=== PATIENT | female | born 1990 | race Caucasian/White ===

== ENCOUNTER → 2023-09-24 10:44 | Outpatient (REF) | payer BC, SELFPAY | LOC: PNTC 10:44 | PROVIDERS: ATTENDING PHYSICIAN Obstetrics & Gynecology | DX: Z34.82 Encounter for supervision of other normal pregnancy, second trimester (principal) | CPT/HCPCS: 76805 ==

== ENCOUNTER 2023-12-05 15:48 | Observation (INO) | payer BC, SELFPAY ==
[2023-12-05 16:05] VITALS: BMI 23.4
[2023-12-05 16:07] VITALS: BP 128/72
== END 2023-12-05 16:57 | disposition home or self-care (01) ==
LOC: LDRP 15:48
PROVIDERS: ADMITTING PHYSICIAN Obstetrics & Gynecology; FAMILY PHYSICIAN Internal Medicine
DX: O47.03 False labor before 37 completed weeks of gestation, third trimester (principal); O09.293 Supervision of pregnancy with other poor reproductive or obstetric history, third trimester; Z3A.30 30 weeks gestation of pregnancy
CPT/HCPCS: 59899; G0378

== ENCOUNTER 2024-02-12 19:24 | Inpatient (IN) | payer BC, SELFPAY ==
[2024-02-12 19:44] VITALS: BP 130/84; BMI 27.5
[2024-02-12 20:54] LABS: % Basophils 0.4 % (0-2); % Eosinophils 0.2 % (0-6); % Immature Granulocytes 0.5 % (0-0.5); % Monocytes 7.9 % (1.7-9.3); Absolute Basophils 0.1 10^3/uL (0-0.2); Absolute Immature Granulocytes 0.1 10^3/uL (0-0.05); Absolute Lymphocytes 3.4 10^3/uL (1.2-3.4); Absolute Neutrophils 7.7 10^3/uL (1.4-6.5); Hematocrit 36.3 % (37.0-47.0); Hemoglobin 13.6 g/dL (12.0-16.0); Mean Corp Hgb Conc. 37.5 g/dL (33.0-37.0); Mean Corpuscular Hgb 33.7 pg (27.0-31.0); Mean Corpuscular Volume 89.9 fL (81.0-99.0); Mean Platelet Volume 12.8 fL (7.4-10.4); Nucleated Red Blood Cells % 0 %; Platelet Count 179 10^3/uL (130-400); Red Blood Cell Count 4.04 10^6/uL (4.20-5.40); Red Cell Dist. Width 12.1 % (11.5-14.5); White Blood Cell Count 12.2 10^3/uL (4.8-10.8)
[2024-02-12] MEDS: CYTOTEC 25 MICROGRAM VAG (21:18)
[2024-02-13] MEDS: CYTOTEC 50 MICROGRAM PO (01:36)
[2024-02-13] MEDS: LR 1000 IV ×3 (02:00→07:15)
[2024-02-13] MEDS: FENTANYL/BUPIVACAINE 100 EPIDURAL ×2 (03:07→19:01)
[2024-02-13] MEDS: SUBLIMAZE 100 MCG EPIDURAL ×2 (03:07→08:26)
[2024-02-13] MEDS: PITOCIN 30 UNITS/NSS 500 ML IV (13:05)
[2024-02-13] MEDS: ZOFRAN 4 MG IV (13:36)
[2024-02-13 22:27] LABS: Cord ABG Comment CORD BLOOD
[2024-02-13 22:29] LABS: HCO3 Cord ABG 17.5 mmol/L; O2 Saturation % Cord ABG 48.2 %; PCO2 Cord ABG 39 mmHg; PO2 Cord ABG 22 mmHg; pH Cord ABG 7.26
[2024-02-13] MEDS: METHERGINE INJECTION 0.2 MG IM (22:29)
[2024-02-14] MEDS: MOTRIN 600 MG PO ×4 (01:05→20:37)
[2024-02-14 06:36] LABS: Hematocrit 29.3 % (37.0-47.0); Hemoglobin 10.9 g/dL (12.0-16.0)
[2024-02-14] MEDS: SENOKOT-S 1 TABLET PO ×2 (09:17→20:37)
[2024-02-14 14:47] LABS: Syphilis/T. pallidum Ab Reflex Negative (Negative)
[2024-02-14] MEDS: DILAUDID 2 MG PO (18:44)
[2024-02-15] MEDS: DILAUDID 2 MG PO (00:19)
[2024-02-15] MEDS: MOTRIN 600 MG PO ×2 (06:33→14:22)
[2024-02-15] MEDS: SENOKOT-S 1 TABLET PO (08:26)
== END 2024-02-15 19:45 | disposition home or self-care (01) | DRG 768 ==
LOC: LDRP 19:24
PROVIDERS: Obstetrics & Gynecology; ADMITTING PHYSICIAN Obstetrics & Gynecology
PROC: 3E0P7VZ Introduction of Hormone into Female Reproductive, Via Natural or Artificial Opening (ICD-10-PCS; 2024-02-12)
PROC: 0UQMXZZ Repair Vulva, External Approach (ICD-10-PCS; 2024-02-13)
PROC: 10E0XZZ Delivery of Products of Conception, External Approach (ICD-10-PCS; 2024-02-13)
PROC: 3E0DXGC Introduction of Other Therapeutic Substance into Mouth and Pharynx, External Approach (ICD-10-PCS; 2024-02-13)
PROC: 10H07YZ Insertion of Other Device into Products of Conception, Via Natural or Artificial Opening (ICD-10-PCS; 2024-02-13)
PROC: 6A550ZT Pheresis of Cord Blood Stem Cells, Single (ICD-10-PCS; 2024-02-13)
PROC: 0DQR0ZZ Repair Anal Sphincter, Open Approach (ICD-10-PCS; 2024-02-13)
DX: O48.0 Post-term pregnancy (principal); Z37.0 Single live birth; O70.20 Third degree perineal laceration during delivery, unspecified; Z3A.40 40 weeks gestation of pregnancy; O66.0 Obstructed labor due to shoulder dystocia; O77.0 Labor and delivery complicated by meconium in amniotic fluid; Z88.6 Allergy status to analgesic agent; Z91.018 Allergy to other foods
CPT/HCPCS: 88307; 36415; 82803; 85014; 85018; 85025; 86780; 86850; 86900; 86901

== ENCOUNTER → 2024-03-13 16:18 | Outpatient (REF) | payer BC, SELFPAY | LOC: RAD 16:18 | PROVIDERS: ATTENDING PHYSICIAN Obstetrics & Gynecology; FAMILY PHYSICIAN Internal Medicine | DX: M53.3 Sacrococcygeal disorders, not elsewhere classified (principal) | CPT/HCPCS: 72190 ==

== ENCOUNTER → 2024-06-01 06:44 | Outpatient (REF) | payer BC, SELFPAY ==
[2024-06-01 07:43] LABS: Hematocrit 41.4 % (37.0-47.0); Hemoglobin 13.8 g/dL (12.0-16.0); Mean Corp Hgb Conc. 33.3 g/dL (33.0-37.0); Mean Corpuscular Hgb 30.1 pg (27.0-31.0); Mean Corpuscular Volume 90.2 fL (81.0-99.0); Mean Platelet Volume 10.3 fL (7.4-10.4); Platelet Count 209 10^3/uL (130-400); Red Blood Cell Count 4.59 10^6/uL (4.20-5.40); Red Cell Dist. Width 12.1 % (11.5-14.5); White Blood Cell Count 6.1 10^3/uL (4.8-10.8)
[2024-06-01 08:16] LABS: ALT (SGPT) 48 U/L (0-35); AST (SGOT) 35 U/L (14-36); Albumin 4.8 g/dl (3.5-5.0); Alkaline Phosphatase 75 U/L (38-126); Blood Urea Nitrogen 19 mg/dl (7-17); Calcium 9.9 mg/dl (8.4-10.2); Carbon Dioxide 26 mmol/L (22-30); Chloride 105 mmol/L (98-107); Glucose 84 mg/dl (70-99); HDL Cholesterol 57 mg/dl; LDL Cholesterol, Calculated 176 mg/dl; Potassium 4.4 mmol/L (3.5-5.1); Sodium 144 mmol/L (135-145); Total Bilirubin 0.6 mg/dl (0.2-1.3); Total Cholesterol 248 mg/dl (50-199); Total Protein 7.5 g/dl (6.3-8.2); Triglyceride 79 mg/dl (10-149); Very Low Density Lipoprotein 15 mg/dl (0-30); eGFR > 60.00
[2024-06-01 08:50] LABS: Absolute Neutrophils -Man Diff 1.9 10^3/uL (1.4-6.5); Atypical Lymphocytes 10 %; Band Neutrophils 0 % (0-3); Lymphocytes 55 % (20-51); Monocytes 2 % (2-9); Segmented Neutrophils 32 % (42-75)
[2024-06-01 08:51] LABS: Normal RBC Morphology Yes; Platelets Checked Yes; TSH Reflex To Free T4 1.04 uIU/ml (0.47-4.68); Total Cells Counted 100
== END ==
LOC: REG 06:44
PROVIDERS: ATTENDING PHYSICIAN Physician Assistant
DX: E78.00 Pure hypercholesterolemia, unspecified (principal); R79.89 Other specified abnormal findings of blood chemistry; Z13.0 Encounter for screening for diseases of the blood and blood-forming organs and certain disorders involving the immune mechanism; Z13.29 Encounter for screening for other suspected endocrine disorder
CPT/HCPCS: 36415; 80053; 80061; 84443; 85025

== ENCOUNTER 2024-06-02 06:14 | Outpatient (RCR) | payer BC, SELFPAY | END 2024-06-02 23:59 | disposition home or self-care (01) | LOC: RPT 06:14 | PROVIDERS: ATTENDING PHYSICIAN Obstetrics & Gynecology; FAMILY PHYSICIAN Internal Medicine | DX: R10.2 Pelvic and perineal pain (principal); M62.89 Other specified disorders of muscle; M62.838 Other muscle spasm; M54.59 Other low back pain; M62.81 Muscle weakness (generalized) | CPT/HCPCS: 97140; 97163; 97530 ==

== ENCOUNTER → 2024-06-22 08:01 | Outpatient (REF) | payer BC, SELFPAY | LOC: HWRAD 08:01 | PROVIDERS: ATTENDING PHYSICIAN Physician Assistant | DX: R79.89 Other specified abnormal findings of blood chemistry (principal) | CPT/HCPCS: 76700 ==

== ENCOUNTER → 2024-06-29 08:38 | Outpatient (REF) | payer BC, SELFPAY | LOC: MRI 3T 08:38 | PROVIDERS: ATTENDING PHYSICIAN Physician Assistant; FAMILY PHYSICIAN Internal Medicine | DX: K76.9 Liver disease, unspecified (principal); R93.89 Abnormal findings on diagnostic imaging of other specified body structures | CPT/HCPCS: 74183; A9575 ==

== ENCOUNTER 2024-07-03 06:35 | Outpatient (RCR) | payer BC, SELFPAY | END 2024-07-03 23:59 | disposition home or self-care (01) | LOC: RPT 06:35 | PROVIDERS: ATTENDING PHYSICIAN Obstetrics & Gynecology; FAMILY PHYSICIAN Internal Medicine | DX: R10.2 Pelvic and perineal pain (principal); M62.89 Other specified disorders of muscle; M62.838 Other muscle spasm; Z73.6 Limitation of activities due to disability; M54.59 Other low back pain; M62.81 Muscle weakness (generalized); K59.00 Constipation, unspecified | CPT/HCPCS: 97140; 97530 ==

== ENCOUNTER 2024-07-24 06:10 | Outpatient (RCR) | payer BC, SELFPAY | END 2024-07-24 23:59 | disposition home or self-care (01) | LOC: RPT 06:10 | PROVIDERS: ATTENDING PHYSICIAN Obstetrics & Gynecology; FAMILY PHYSICIAN Internal Medicine | DX: R10.2 Pelvic and perineal pain (principal); M62.89 Other specified disorders of muscle; Z73.6 Limitation of activities due to disability; M62.838 Other muscle spasm; M54.59 Other low back pain; M62.81 Muscle weakness (generalized); K59.00 Constipation, unspecified | CPT/HCPCS: 97140; 97530 ==

== ENCOUNTER 2024-09-04 07:03 | Outpatient (RCR) | payer BC, SELFPAY | END 2024-09-04 23:59 | disposition home or self-care (01) | LOC: RPT 07:03 | PROVIDERS: ATTENDING PHYSICIAN Obstetrics & Gynecology; FAMILY PHYSICIAN Internal Medicine | DX: R10.2 Pelvic and perineal pain (principal); M62.89 Other specified disorders of muscle; Z73.6 Limitation of activities due to disability; M62.838 Other muscle spasm; M54.59 Other low back pain; M62.81 Muscle weakness (generalized); K59.00 Constipation, unspecified | CPT/HCPCS: 97112; 97140; 97530 ==

== ENCOUNTER → 2025-05-24 10:17 | Outpatient (REF) | payer BC, SELFPAY | LOC: REG 10:17 | PROVIDERS: ATTENDING PHYSICIAN Nurse Practitioner Family; FAMILY PHYSICIAN Internal Medicine | DX: Z32.01 Encounter for pregnancy test, result positive (principal) | CPT/HCPCS: 36415; 84702 ==

== ENCOUNTER → 2025-05-31 11:33 | Outpatient (REF) | payer BC, SELFPAY ==
[2025-05-31 12:31] LABS: Hematocrit 39.2 % (37.0-47.0); Hemoglobin 13.1 g/dL (12.0-16.0); Mean Corp Hgb Conc. 33.4 g/dL (33.0-37.0); Mean Corpuscular Volume 86.5 fL (81.0-99.0); Platelet Count 216 10^3/uL (130-400); Red Cell Dist. Width 13.4 % (11.5-14.5)
[2025-05-31 12:43] LABS: Urine Character Clear (Clear)
[2025-05-31 14:21] LABS: Glycohemoglobin (HgbA1c) 5.2 % (4.0-5.9)
[2025-05-31 15:21] LABS: Urine Squamous Cell 16-20 /LPF (Few); Urine Urothelial Cell 0-2 /LPF (FEW)
[2025-05-31 15:22] LABS: Urine Red Blood Cell 0-2 /HPF (0-2); Urine White Cell 0-2 /HPF (0-5)
[2025-05-31 17:07] LABS: Nucleated Red Blood Cells % 0 %
[2025-05-31 18:48] LABS: Hepatitis B Surface Antigen Negative (Negative)
[2025-05-31 19:06] LABS: Hepatitis C Antibody Negative (Negative)
[2025-06-01 14:04] LABS: Syphilis/T. pallidum Ab Reflex Negative (Negative)
[2025-06-01 19:20] LABS: Capillary Hgb Electrophoresis Not Performed; Hemoglobin - Other 0.0 % (0.0-0.0); Sickle Cell Solubility Reflex Not Performed
[2025-06-03 03:35] LABS: Chlamydia trachomatis by TMA Negative (Negative); Neisseria gonorrhoeae by TMA Negative (Negative); Specimen Source Vaginal
== END ==
LOC: CPAP 11:33
PROVIDERS: ATTENDING PHYSICIAN Nurse Practitioner Family; FAMILY PHYSICIAN Internal Medicine
DX: Z32.01 Encounter for pregnancy test, result positive (principal)
CPT/HCPCS: 36415; 81003; 81015; 83021; 83036; 84702; 85025; 86704; 86706; 86762; 86780; 86803; 86850; 86900; 86901; 87086; 87340; 87389; 87491; 87591

== ENCOUNTER → 2025-06-14 13:26 | Outpatient (REF) | payer BC, SELFPAY | LOC: RAD 13:26 | PROVIDERS: ATTENDING PHYSICIAN Obstetrics & Gynecology; FAMILY PHYSICIAN Internal Medicine | DX: O26.859 Spotting complicating pregnancy, unspecified trimester (principal) | CPT/HCPCS: 76801 ==